=== PATIENT | female | born 2000 | race Caucasian/White ===

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

== ENCOUNTER 2022-12-28 10:21 | Emergency (ER) | payer OTHER ==
[~2022-12-28] VITALS: Ht 167.6 cm; Wt 113.9 kg
[2022-12-28 10:22] VITALS: BP 111/64
--- NOTE | 2022-12-28 10:26 | NUR ---
PT AMB TO BED 4.
[2022-12-28] MEDS ORDERED: DEXAMETHASONE 10 MG/ML VIAL IM ONE (11:25)
[2022-12-28] MEDS ORDERED: PHEN177S23 PO (11:28)
== END 2022-12-28 12:18 | disposition home or self-care (01) ==
LOC: MED 10:21
DX: J03.90 Acute tonsillitis, unspecified (principal); F17.200 Nicotine dependence, unspecified, uncomplicated; F12.90 Cannabis use, unspecified, uncomplicated; Z79.899 Other long term (current) drug therapy
CPT/HCPCS: 87081; 96372; 99283; J1100

== ENCOUNTER 2023-02-24 19:50 | Emergency (ER) | payer OTHER ==
[~2023-02-24] VITALS: Ht 167.6 cm; Wt 117.9 kg
[~2023-02-24 19:50] MED LIST: PHEN177S23 PO
[2023-02-24 20:20] VITALS: BP 130/90
--- NOTE | 2023-02-24 20:23 | NUR ---
TO LOBBY A/W BED AMBULATORY
--- NOTE | 2023-02-24 21:25 | NUR ---
Urine collected sent to lab
[2023-02-24 21:39] LABS: BILIRUBIN,URINE 2+ (NEGATIVE); BLOOD, URINE 3+ (NEGATIVE); COLOR,URINE YELLOW (YELLOW); LEUKOCYTE ESTERASE ,URINE 3+ (NEGATIVE); NITRITE, URINE POSITIVE (NEGATIVE); PH,URINE 5.5 (5.0-9.0); UGLUCOSE NEGATIVE (NEGATIVE)
[2023-02-24 21:41] LABS: APPEARANCE,URINE HAZY (CLEAR)
[2023-02-24] MEDS ORDERED: CEPH-588 PO (21:52)
[2023-02-24 22:09] VITALS: BP 130/90
--- NOTE | 2023-02-24 22:09 | NUR ---
Patient discharged with v/s stable. Written and verbal after care instructions given and explained. new rx keflex. Patient verbalized understanding. Ambulatory with steady gait. Accompanied by family member. All questions addressed prior to discharge. Advised to follow up with PMD.
[2023-02-24 22:22] LABS: RBC,URINE 80-100 /HPF (0-5)
== END 2023-02-24 22:09 | disposition home or self-care (01) ==
LOC: MED 19:50
DX: N30.01 Acute cystitis with hematuria (principal); Z79.899 Other long term (current) drug therapy; Z79.2 Long term (current) use of antibiotics
CPT/HCPCS: 81001; 81025; 87086; 99283